=== PATIENT | male | born 1930 | race Caucasian/White ===

== ENCOUNTER 2019-01-12 15:08 | Emergency (ER) | payer MEDICARE ==
[~2019-01-12] VITALS: Ht 190.5 cm; Wt 106.6 kg
[2019-01-12] MEDS ORDERED: fentaNYL INJECTION 100 MCG/2 ML AMP IVP ONE ×2 (15:30→16:00)
--- NOTE | 2019-01-12 15:36 | ED General ---
General Stated Complaint: ALTERED MENTAL STATUS Source of Information: Patient, Family Exam Limitations: Other (clinical condition) History of Present Illness Date Seen by Provider: Jan 12, 2019 Time Seen by Provider: 15:12 Initial Comments The patient presents to the ER by EMS from [facility] dialysis where he was confused, muttering and somnolent. He lives a home with his son who is also his power of pants busheler and caregiver. He says that for the past 2 weeks the patient has been acting a little off but not as bad as today. The son has also noticed that the patient has not been sleeping at all for the last 3 days. Apparently they mention this to the staff at dialysis center and so they gave him a Benadryl tablet trying get him to calm down and get some sleep and he did sleep was very difficult to rouse. When EMS arrived they noted his blood sugar to be 67 gave him half an amp of D50. The son says his blood sugar for the past several days been running from 120-180. He is on Levemir 15 units and 8-15 units of Humalog. He's had an occasional cough for the past few weeks as well as runny nose but no significant production of sputum, nausea fevers chills vomiting diarrhea or painful urination. He has a scrape on his forehead that the son states is from a fall approximately 2 weeks ago when he started acting off. At that time they were seen at the clinician's office but not worked up for the fall nor had a CT. 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 He was hospitalized for less than 24 hours at that time because he had altered mental status after going for almost a week without sleeping similar to the way he presents today. They gave him something so he slept and when he woke up he was doing just fine again. The son says at baseline and he will carry a conversation gets around in his wheelchair and can transfer with minimal assistance from wheelchair to car. He was able to transfer on his own this morning. The patient does have problems with frequent hallucinations seeing people who were not there and talking to them but is still able to make his wishes known prior to today. He has a history of bad back pain for which he usually uses tramadol 3 times a day. He has not had his noon medicines today. Allergies and Home Medications Allergies Coded Allergies: Influenza Virus Vaccines (Verified Allergy, Unknown, 01/12/19) chlorhexidine (Verified Allergy, Unknown, 01/12/19) iodine (Unverified Allergy, Unknown, 01/12/19) Uncoded Allergies: PAPER TAPE (Allergy, Unknown, 01/12/19) Patient Home Medication List Home Medication List Reviewed: Yes Review of Systems Review of Systems Constitutional: see HPI (history and review of systems per family and caregivers. Patient's unable to give any meaningful review of systems.); No chills, No diaphoresis, No fever; malaise EENTM: nose congestion; No ear discharge, No ear pain, No eye pain Respiratory: cough; No phlegm, No short of breath, No wheezing Cardiovascular: No chest pain, No edema Gastrointestinal: No abdominal pain, No constipation, No diarrhea, No nausea Genitourinary: No discharge, No dysuria Musculoskeletal: back pain; No joint pain Past Qvbhinu-Unbdqo-Ainwwj Hx Patient Social History Alcohol Use: Denies Use Recreational Drug Use: No Smoking Status: Never a Smoker Recent Foreign Travel: No Contact w/Someone Who Travel: No Physical Exam Vital Signs Vital Signs - First Documented 01/12/19 15:15 Temp 96.6 Pulse 68 Resp 18 B/P (MAP) 120/82 (95) Pulse Ox 99 O2 Delivery Nasal Cannula Capillary Refill : Height, Weight, BMI Height: '" Weight: lbs. oz. kg; BMI Method: General Appearance: Chronically ill, Mild Distress Eyes: Bilateral Eye Normal Inspection, Bilateral Eye PERRL, Bilateral Eye EOMI HEENT: PERRL/EOMI, TMs Normal, Normal ENT Inspection, Pharynx Normal, Moist Mucous Membranes Neck: Full Range of Motion, Normal Inspection Respiratory: Chest Non Tender, Lungs Clear, Normal Breath Sounds, No Accessory Muscle Use, No Respiratory Distress Cardiovascular: Regular Rate, Rhythm, No Edema, Normal Peripheral Pulses Gastrointestinal: Normal Bowel Sounds, Non Tender, Soft Extremity: Normal Capillary Refill, Non Tender, No Calf Tenderness Neurologic/Psychiatric: Alert, Other (GCS 11 points. Repeats the same phrase here or reasoning up or my back hurts. Answers yes and no but not consistently. Moves all 4 limbs independently.) Skin: Normal Color, Warm/Dry Lymphatic: No Adenopathy Progress/Results/Core Measures Suspected Sepsis SIRS Temperature: Pulse: Respiratory Rate: Laboratory Tests 3/20/19 15:15: White Blood Count 3.7L Blood Pressure / Mean: Laboratory Tests 01/12/19 15:15: Creatinine 2.36H, Platelet Count 111L, Total Bilirubin 0.6 Results/Orders Lab Results Laboratory Tests Test 01/12/19 15:15 01/12/19 15:23 01/12/19 15:58 01/12/19 16:00 Range/Units White Blood Count 3.7 L 4.3-11.0 10^3/uL Red Blood Count 3.61 L 4.35-5.85 10^6/uL Hemoglobin 11.2 L 13.3-17.7 G/DL Hematocrit 35 L 40-54 % Mean Corpuscular Volume 98 80-99 FL Mean Corpuscular Hemoglobin 31 25-34 PG Mean Corpuscular Hemoglobin Concent 32 32-36 G/DL Red Cell Distribution Width 17.3 H 10.0-14.5 % Platelet Count 111 L 130-400 10^3/uL Mean Platelet Volume 10.9 H 7.4-10.4 FL Neutrophils (%) (Auto) 50 42-75 % Lymphocytes (%) (Auto) 39 12-44 % Monocytes (%) (Auto) 9 0-12 % Eosinophils (%) (Auto) 2 0-10 % Basophils (%) (Auto) 0 0-10 % Neutrophils # (Auto) 1.9 1.8-7.8 X 10^3 Lymphocytes # (Auto) 1.5 1.0-4.0 X 10^3 Monocytes # (Auto) 0.3 0.0-1.0 X 10^3 Eosinophils # (Auto) 0.1 0.0-0.3 10^3/uL Basophils # (Auto) 0.0 0.0-0.1 10^3/uL Sodium Level 139 135-145 MMOL/L Potassium Level 4.6 3.6-5.0 MMOL/L Chloride Level 94 L 98-107 MMOL/L Carbon Dioxide Level 32 21-32 MMOL/L Anion Gap 13 5-14 MMOL/L Blood Urea Nitrogen 19 H 7-18 MG/DL Creatinine 2.36 H 0.60-1.30 MG/DL Estimat Glomerular Filtration Rate 26 BUN/Creatinine Ratio 8 Glucose Level 121 H 70-105 MG/DL Calcium Level 8.8 8.5-10.1 MG/DL Corrected Calcium 9.0 8.5-10.1 MG/DL Magnesium Level 2.1 1.8-2.4 MG/DL Total Bilirubin 0.6 0.1-1.0 MG/DL Aspartate Amino Transf (AST/SGOT) 28 5-34 U/L Alanine Aminotransferase (ALT/SGPT) 25 0-55 U/L Alkaline Phosphatase 97 40-136 U/L Total Protein 6.8 6.4-8.2 GM/DL Albumin 3.7 3.2-4.5 GM/DL Glucometer 112 H 70-110 MG/DL Blood Gas Puncture Site RT RADIAL Blood Gas Patient Temperature 96.7 Arterial Blood pH 7.59 H 7.37-7.43 Arterial Blood Partial Pressure CO2 42 35-45 MMHG Arterial Blood Partial Pressure O2 77 L 79-93 MMHG Arterial Blood HCO3 40 H 23-27 MMOL/L Arterial Blood Total CO2 41.6 H 21.0-31.0 MMOL/L Arterial Blood Oxygen Saturation 92 L 94-100 % Arterial Blood Base Excess 16.8 H -2.5-2.5 MMOL/L Rickie Test OK Blood Gas Ventilator Setting NO Blood Gas Inspired Oxygen 4L Urine Color YELLOW Urine Clarity CLEAR Urine pH 8.5 5-9 Urine Specific [place] 1.015 L 1.016-1.022 Urine Protein 3+ H NEGATIVE Urine Glucose (UA) NEGATIVE NEGATIVE Urine Ketones NEGATIVE NEGATIVE Urine Nitrite NEGATIVE NEGATIVE Urine Bilirubin NEGATIVE NEGATIVE Urine Urobilinogen 0.2 NORMAL MG/DL Urine Leukocyte Esterase NEGATIVE NEGATIVE Urine RBC (Auto) NEGATIVE NEGATIVE Urine RBC RARE /HPF Urine WBC 2-5 /HPF Urine Squamous Epithelial Cells 2-5 /HPF Urine Crystals NONE /LPF Urine Bacteria NONE /HPF Urine Casts NONE /LPF Urine Mucus NEGATIVE /LPF Urine Culture Indicated NO Micro Results Microbiology 01/12/19 Influenza Types A,B Antigen (MARYANN) - Final, Complete My Orders Orders - NITIN STEWART Ct Head Wo (01/12/19 15:27) Ammonia (01/12/19 15:27) Arterial Blood Gas (01/12/19 15:27) Cbc With Automated Diff (01/12/19 15:27) Comprehensive Metabolic Panel (01/12/19 15:27) Hs C Reactive Protein (01/12/19 15:27) Magnesium (01/12/19 15:27) Ua Culture If Indicated (01/12/19 15:27) Blood Culture (01/12/19 15:27) Influenza A And B Antigens (01/12/19 15:27) Accucheck Stat ONCE (01/12/19 15:27) Saline Lock/Iv-Start (01/12/19 15:27) Fentanyl Injection (Sublimaze Injection (01/12/19 15:30) Chest Pa/Lat (2 View) (01/12/19 15:44) Medications Given in ED Current Medications Medications Dose Ordered Sig/Crista Route Start Time Stop Time Status Last Admin Dose Admin Fentanyl Citrate 25 mcg ONCE ONCE IVP 01/12/19 15:30 01/12/19 15:31 DC 01/12/19 15:45 25 MCG Vital Signs/I&O 01/12/19 15:15 Temp 96.6 Pulse 68 Resp 18 B/P (MAP) 120/82 (95) Pulse Ox 99 O2 Delivery Nasal Cannula Capillary Refill : Progress Note #1: Time: 15:41 Progress Note Accu-Chek is 112. We'll look for evidence of infection which might of contributed to his low blood sugar. He's had a fall and had decreased mentation in the past 2 weeks so we'll check a CT scan of the head. The son reports that he had massive evidence of stroke from couple months ago that was old then on the left side of his brain. Expect to see something similar. Since she's complaining consistently of his back pain and has not had his tramadol at noon, almost 4 hours ago we'll give him 25 g of fentanyl before going to CT scan to see if we get him to lay still long enough to get a x-ray of the head. We'll do a straight catheter of the bladder for urine. We'll consider sending him back to [place] where his cigar packing examiner is for management. Had a discussion about CODE STATUS and he is a DO NOT RESUSCITATE, his family would like to allow natural . After our workup is done we'll discuss goals of care. Progress Note #2: Time: 19:03 Progress Note We discussed the possibility of taking the patient home as he does seem to be experiencing delirium secondary to some medications he took. Sounds like they are giving him some xcyv-lnq-wceayxn sleep medicines were not melatonin so they were probably an anticholinergic. It would be advisable to take home if they could take care of him in the sons both think that they could easily take care of him at home. We stayed find out whether or not his oxygen is going below. He' s been on O2 nasal cannula since she's been here but I suspect that the ABG from earlier was a venous blood gas. We've turned off nasal cannula and will watch him for 10:15 minutes see how is doing. Right now he is calm and sleeping. Progress Note #3: Time: 19:29 Progress Note The patient's been on room air and satting around 100% the entire time. He's been sleeping most the time. We've explained delirium and sons think that they can take care of him this is not his first time having delirium after all. We' ve offered observation stay versus going home and we've explained the risks, benefits and alternatives to both and they choose to take him home. We've given return precautions. Diagnostic Imaging Diagonstic Imaging: Xray Plain Films/CT/US/NM/MRI: chest Comments NAME: PATRIZIA ALFARO [facility] REC#: [id number] PT STATUS: REG ER : 1930 PHYSICIAN: NITIN STEWART MD ADMIT DATE: 01/12/19/ER FS Signed Date of Exam:01/12/19 CHEST PA/LAT (2 VIEW) Indication: Altered mental status PA and lateral chest There is cardiomegaly. There is a right IJ central and to project over the SVC. There is a tiny left pleural effusion. There are scattered calcified granulomas throughout the lungs. There are no consolidating infiltrates. Impression: Cardiomegaly. There may be mild pulmonary vascular congestion. There are some scattered calcified granulomas in the lungs. Dictated by: Dictated on workstation # [id number] Dict: 01/12/191650 Trans: 01/12/191652 [id number] Interpreted by: ORAL CROWLEY MD Electronically signed by: ORAL CROWLEY MD 01/12/191652 Reviewed: Reviewed by Me Diagonstic Imaging: CT (noncontrast) Plain Films/CT/US/NM/MRI: head Comments [facility] [place] NAME: PATRIZIA ALFARO [facility] REC#: [id number] PT STATUS: REG ER : 1930 PHYSICIAN: NITIN STEWART MD ADMIT DATE: 01/12/19/ER FS Draft Date of Exam:01/12/19 CT HEAD WO PROCEDURE: CT head without contrast. TECHNIQUE: Multiple contiguous axial images were obtained through the brain without the use of intravenous contrast. Auto exposure controls were utilized during the CT exam to meet ALARA standards for radiation dose reduction. INDICATION: Found down, altered mental status. FINDINGS: Multiple contiguous axial CT images of the head were obtained. Study is significantly limited by motion artifact. There is extensive encephalomalacia in the right hemisphere indicating remote right middle cerebral artery distribution infarction. There is no evidence of intracranial hemorrhage. No intracranial mass is identified. There is extensive mural thickening of the visualized left maxillary sinus. Calvarium is intact. 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 Examination is significantly limited by motion; however, no definite acute abnormality is identified. Consideration should be given to repeat examination when patient can better cooperate. Dictated on workstation # [id number] Dict: 01/12/19 1648 Trans: 01/12/19 1653 [facility] [id number] Interpreted by: CHANTEL DEL VALLE MD Electronically signed by: Reviewed: Reviewed by Me Departure Impression Primary Impression: Encephalopathy acute Additional Impression: Diphenhydramine adverse reaction Qualified Codes: T45.0X5A - Adverse effect of antiallergic and antiemetic drugs, initial encounter Disposition: 01 HOME, SELF-CARE Condition: Stable (ERASED) Departure-Patient Inst. Decision time for Depature: 19:30 Referrals: NO,LOCAL PHYSICIAN (PCP) Primary Care Physician Patient Instructions: Delirium (Confusion) (DC) Add. Discharge Instructions: Take him home and let him get some sleep. Follow-up with primary care next week. Avoid anticholinergic such as Benadryl or [id number] sleep aids with the exception of melatonin. Continue all of his home medications as prescribed. If you have any problems or if he starts acting differently you can return to the ER for further evaluation and management. NITIN STEWART Jan 12, 2019 15:36
[2019-01-12 15:42] LABS: HEMATOCRIT 35 % (40-54); HEMOGLOBIN 11.2 G/DL (13.3-17.7); MEAN CORPUSCULAR HEMOGLOBIN 31 PG (25-34); MEAN CORPUSCULAR HGB CONC 32 G/DL (32-36); MEAN CORPUSCULAR VOLUME 98 FL (80-99); RED CELL DISTRIBUTION WIDTH 17.3 % (10.0-14.5); WHITE BLOOD COUNT 3.7 10^3/uL (4.3-11.0)
[2019-01-12 15:43] LABS: BASOPHILS % (AUTO) 0 % (0-10); EOSINOPHILS # (AUTO) 0.1 10^3/uL (0.0-0.3); EOSINOPHILS % (AUTO) 2 % (0-10); LYMPHOCYTES # (AUTO) 1.5 X 10^3 (1.0-4.0); LYMPHOCYTES % (AUTO) 39 % (12-44); MEAN PLATELET VOLUME 10.9 FL (7.4-10.4); MONOCYTES # (AUTO) 0.3 X 10^3 (0.0-1.0); MONOCYTES % (AUTO) 9 % (0-12); NEUTROPHILS # (AUTO) 1.9 X 10^3 (1.8-7.8); NEUTROPHILS % (AUTO) 50 % (42-75); PLATELET COUNT 111 10^3/uL (130-400)
[2019-01-12 15:51] LABS: BILIRUBIN,TOTAL 0.6 MG/DL (0.1-1.0); CALCIUM 8.8 MG/DL (8.5-10.1); CREATININE SERUM 2.36 MG/DL (0.60-1.30); MAGNESIUM 2.1 MG/DL (1.8-2.4); POTASSIUM 4.6 MMOL/L (3.6-5.0)
[2019-01-12 15:52] LABS: ALBUMIN 3.7 GM/DL (3.2-4.5); TOTAL PROTEIN 6.8 GM/DL (6.4-8.2)
[2019-01-12 16:15] LABS: ABG PCO2 42 MMHG (35-45); ABG PH 7.59 (7.37-7.43)
[2019-01-12 16:16] LABS: ABG BASE EXCESS 16.8 MMOL/L (-2.5-2.5); ABG OXYGEN SATURATION 92 % (94-100); ABG PO2 77 MMHG (79-93); ABG TCO2 41.6 MMOL/L (21.0-31.0); ALLENS TEST OK; INSPIRED O2 4L
[2019-01-12 16:17] LABS: PATIENT TEMP 96.7; VENTILATOR NO
[2019-01-12 16:21] LABS: BILIRUBIN,URINE NEGATIVE (NEGATIVE); CLARITY,URINE CLEAR; COLOR,URINE YELLOW; GLUCOSE, URINE (UA) NEGATIVE (NEGATIVE); KETONES,URINE NEGATIVE (NEGATIVE); LEUKOCYTE ESTERASE ,URINE NEGATIVE (NEGATIVE); NITRITE,URINE NEGATIVE (NEGATIVE); PH,URINE 8.5 (5-9); PROTEIN,URINE 3+ (NEGATIVE); RBC,URINE RARE /HPF; UROBILINOGEN,URINE 0.2 MG/DL (NORMAL)
--- NOTE | 2019-01-12 16:54 | Diagnostic Imaging Report ---
PROCEDURE: CT head without contrast. TECHNIQUE: Multiple contiguous axial images were obtained through the brain without the use of intravenous contrast. Auto exposure controls were utilized during the CT exam to meet ALARA standards for radiation dose reduction. INDICATION: Found down, altered mental status. FINDINGS: Multiple contiguous axial CT images of the head were obtained. Study is significantly limited by motion artifact. There is extensive encephalomalacia in the right hemisphere indicating remote right middle cerebral artery distribution infarction. There is no evidence of intracranial hemorrhage. No intracranial mass is identified. There is extensive mural thickening of the visualized left maxillary sinus. Calvarium is intact. 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 Examination is significantly limited by motion; however, no definite acute abnormality is identified. Consideration should be given to repeat examination when patient can better cooperate. Dictated by: Dictated on workstation # [id number]
--- NOTE | 2019-01-12 16:56 | Diagnostic Imaging Report ---
Indication: Altered mental status PA and lateral chest There is cardiomegaly. There is a right IJ central and to project over the SVC. There is a tiny left pleural effusion. There are scattered calcified granulomas throughout the lungs. There are no consolidating infiltrates. Impression: Cardiomegaly. There may be mild pulmonary vascular congestion. There are some scattered calcified granulomas in the lungs. Dictated by: Dictated on workstation # [id number]
[2019-01-12 19:55] VITALS: BP 98/43
== END 2019-01-12 19:49 | disposition home or self-care (01) ==
LOC: ER FS 15:14
DX: G93.40 Encephalopathy, unspecified (principal); T45.0X5A Adverse effect of antiallergic and antiemetic drugs, initial encounter; N18.6 End stage renal disease; Z99.2 Dependence on renal dialysis; Z88.7 Allergy status to serum and vaccine; Z91.041 Radiographic dye allergy status; Z88.8 Allergy status to other drugs, medicaments and biological substances; Z91.048 Other nonmedicinal substance allergy status
CPT/HCPCS: 36415; 51701; 70450; 71046; 80053; 81000; 82805; 82962; 83735; 85025; 87040; 87804; 96374